=== PATIENT | female | born 1970 | race Caucasian/White ===

== ENCOUNTER 2016-09-24 07:50 | Emergency (ER) | payer BC ==
[~2016-09-24 07:50] MED LIST: IMITREX100 MG PO; KLOR-CON M2020 MEQ PO; MIRALAXPKT PO; TOPAMAX100 PO
== END 2016-09-24 09:32 | disposition home or self-care (01) ==
LOC: ER 07:50
DX: G43.909 Migraine, unspecified, not intractable, without status migrainosus (principal); I10 Essential (primary) hypertension; Z88.2 Allergy status to sulfonamides; Z79.899 Other long term (current) drug therapy
CPT/HCPCS: 96374; 96375; 99283; J1200; J1885; J2765